=== PATIENT | male | born 1985 | race Caucasian/White ===

== ENCOUNTER 2022-07-03 09:24 | Emergency (ER) | payer SELFPAY ==
[2022-07-03] MEDS ORDERED: Tranexamic Acid 1,000 MG/10 ML Vial IV ONE ×2 (09:38→09:59)
[2022-07-03] MEDS ORDERED: Tranexamic Acid 1,000 MG/10 ML Vial TOP ONE (09:39)
== END 2022-07-03 10:35 | disposition home or self-care (01) ==
LOC: FB.ED 09:24
DX: R04.0 Epistaxis (principal); F17.210 Nicotine dependence, cigarettes, uncomplicated
CPT/HCPCS: 96374; 99281; 99283-25